=== PATIENT | male | born 1980 | race Caucasian/White ===

== ENCOUNTER 2017-09-25 23:12 | Emergency (ER) | payer OTHER ==
[~2017-09-25] VITALS: Ht 182.9 cm; Wt 80.0 kg
[2017-09-26 01:50] VITALS: BP 132/84
== END 2017-09-26 03:26 | disposition home or self-care (01) ==
LOC: EMS 23:13
DX: S00.461A Insect bite (nonvenomous) of right ear, initial encounter (principal); S00.462A Insect bite (nonvenomous) of left ear, initial encounter; S90.562A Insect bite (nonvenomous), left ankle, initial encounter; S90.561A Insect bite (nonvenomous), right ankle, initial encounter; S00.86XA Insect bite (nonvenomous) of other part of head, initial encounter; H92.03 Otalgia, bilateral; F17.210 Nicotine dependence, cigarettes, uncomplicated; F12.90 Cannabis use, unspecified, uncomplicated; Z88.0 Allergy status to penicillin; W57.XXXA Bitten or stung by nonvenomous insect and other nonvenomous arthropods, initial encounter; Y93.89 Activity, other specified; Y92.89 Other specified places as the place of occurrence of the external cause; Y99.8 Other external cause status
CPT/HCPCS: 99281; 99406